=== PATIENT | female | born 1980 | race Caucasian/White ===

== ENCOUNTER → 2022-07-21 | Emergency (ER) | payer MEDICAID ==
[~2022-07-21] VITALS: Ht 167.6 cm; Wt 49.9 kg
[~2022-07-21] MED LIST: BACI/NEOM/POLY B OINT PKT 1 UDPKT PACKET ONE; BACI/NEOM/POLY B OINT PKT 1 UDPKT PACKET TP ONE; CEPH500C2 PO; IBUP-1955 PO; SULF1TAB48 PO; TDAP [DIPH/PERTUSSIS/TET] 0.5 ML VIAL IM ONE
[2022-07-21 15:27] VITALS: BP 101/60
--- NOTE | 2022-07-21 16:08 | NUR ---
FAXED ANIMAL BITE REPORTING FORM TO [facility] [phone]
== END | disposition home or self-care (01) ==
LOC: ER 15:24
DX: S61.452A Open bite of left hand, initial encounter (principal); S71.152A Open bite, left thigh, initial encounter; Z60.2 Problems related to living alone; W54.0XXA Bitten by dog, initial encounter; Y93.89 Activity, other specified; Y92.89 Other specified places as the place of occurrence of the external cause; Y99.8 Other external cause status
CPT/HCPCS: 99283; 90471; 90715; 73130; A6403 ×2